=== PATIENT | male | born 1945 | race Caucasian/White ===

== ENCOUNTER 2022-12-14 10:55 | Inpatient (IN) | payer OTHER ==
[~2022-12-14] VITALS: Ht 175.3 cm; Wt 83.5 kg
[2022-12-14] MEDS ORDERED: JANUMET 50-1,01 EACH (12:10)
--- NOTE | 2022-12-14 12:11 | NUR ---
REFIERE HISTORIAL DE SANGRADO RECTAL, DADO DE DONALD 12/08 DRMARIAMA LO ENVIA A ER PARA SEGUIMIENTO.
[2022-12-15] MEDS ORDERED: FERROUS SULFAT325 MG (15:07)
[2022-12-15] MEDS ORDERED: FOLIC ACID1 MG (15:07)
[2022-12-15] MEDS ORDERED: CLOPIDOGREL BIS75 MG (15:07)
[2022-12-15] MEDS ORDERED: VITAMIN D3250 MCG (15:07)
[2022-12-15] MEDS ORDERED: LISINOPRIL20 MG (15:07)
[2022-12-15] MEDS ORDERED: AMLODIPINE-BEN1 EAC3 (15:07)
[2022-12-15] MEDS ORDERED: TAMSULOSIN HCL0.4 MG (15:07)
[2022-12-15] MEDS ORDERED: ATORVASTATIN CA20 MG (15:07)
[2022-12-15] MEDS ORDERED: PANTOPRAZOLE SO40 MG (15:07)
[2022-12-15] MEDS ORDERED: REFRESH RELIEVA10 ML (15:07)
[2022-12-15] MEDS ORDERED: FENOFIBRATE48 MG (15:08)
[2022-12-15] MEDS ORDERED: BENAZEPRIL HCL10 MG (15:08)
[2022-12-15] MEDS ORDERED: METOPROLOL SUCC25 MG (15:08)
[2022-12-15] MEDS ORDERED: AMLODIPINE BESYL5 MG (15:08)
[2022-12-19] MEDS ORDERED: CELEBREX200MG PO (14:21)
[2022-12-19] MEDS ORDERED: PERCOCET 5-3251 EACH PO (14:21)
== END 2022-12-19 14:20 | disposition home or self-care (01) | DRG 348 ==
LOC: ER 10:55 → SURH 13:26 → SEC-K 13:26 → MEDJ 15:31 → SURH 15:32
PROVIDERS: ADMIT Surgery; ATTEND Surgery
PROC: B24BYZZ Ultrasonography of Heart with Aorta using Other Contrast (ICD-10-PCS; 2022-12-15)
PROC: 06BY0ZC Excision of Hemorrhoidal Plexus, Open Approach (ICD-10-PCS; principal; 2022-12-17 12:00)
DX: K64.2 Third degree hemorrhoids (principal); D61.818 Other pancytopenia; K62.5 Hemorrhage of anus and rectum; D50.0 Iron deficiency anemia secondary to blood loss (chronic); D46.Z Other myelodysplastic syndromes; K64.8 Other hemorrhoids; E53.8 Deficiency of other specified B group vitamins; I10 Essential (primary) hypertension; E11.9 Type 2 diabetes mellitus without complications; E78.5 Hyperlipidemia, unspecified; Z79.84 Long term (current) use of oral hypoglycemic drugs

== ENCOUNTER 2022-12-24 14:22 | Emergency (ER) | payer OTHER ==
[~2022-12-24] VITALS: Ht 175.3 cm; Wt 83.9 kg
[~2022-12-24 14:22] MED LIST: AMLODIPINE BESYL5 MG; AMLODIPINE-BEN1 EAC3; ATORVASTATIN CA20 MG; BENAZEPRIL HCL10 MG; CELEBREX200MG PO; CLOPIDOGREL BIS75 MG; FENOFIBRATE48 MG; FERROUS SULFAT325 MG; FOLIC ACID1 MG; JANUMET 50-1,01 EACH; LISINOPRIL20 MG; METOPROLOL SUCC25 MG; PANTOPRAZOLE SO40 MG; PERCOCET 5-3251 EACH PO; REFRESH RELIEVA10 ML; TAMSULOSIN HCL0.4 MG; VITAMIN D3250 MCG
== END 2022-12-24 18:13 | disposition home or self-care (01) ==
LOC: ER 14:22
DX: R07.81 Pleurodynia (principal); E11.65 Type 2 diabetes mellitus with hyperglycemia; Z79.84 Long term (current) use of oral hypoglycemic drugs; K59.00 Constipation, unspecified; Z88.0 Allergy status to penicillin; I10 Essential (primary) hypertension

== ENCOUNTER 2022-12-31 12:06 | Emergency (ER) | payer OTHER ==
[~2022-12-31] VITALS: Ht 175.3 cm; Wt 83.9 kg
== END 2022-12-31 17:50 | disposition home or self-care (01) ==
LOC: ER 12:06
DX: K62.89 Other specified diseases of anus and rectum (principal); Z88.6 Allergy status to analgesic agent; Z98.890 Other specified postprocedural states; E11.9 Type 2 diabetes mellitus without complications; Z79.84 Long term (current) use of oral hypoglycemic drugs; N20.0 Calculus of kidney

== ENCOUNTER 2023-01-06 07:27 | Inpatient (IN) | payer OTHER ==
[~2023-01-06] VITALS: Ht 152.4 cm; Wt 83.9 kg
--- NOTE | 2023-01-06 07:48 | NUR ---
SE RECIBE PTE ALERTA ORIENTADO X3 EN AMBULANCIA EN COMPANIA DE PARAMEDICOS Y FAMILIAR EL CUAL REFIERE PTE PRESENTO 2 EPISODIOS DE SANGR[facility] RECTAL ABUNDANTE HOY EN LA MADRUGADA.SE JANAK S/V Y SE UBICA EN AREA DE OBSERVACION.
--- NOTE | 2023-01-06 08:51 | NUR ---
SE ASISTE AL DR. CRANE EN REALIZAR EXAMEN RECTAL. SE JANAK MUESTRAS DE LABORATORIO Y SE ENVIAN
== END 2023-01-15 19:06 | disposition home or self-care (01) | DRG 377 ==
LOC: ER 07:27 → SURH 13:22 → ICU 01-07 21:45 → MEDJ 01-09 19:33
PROVIDERS: ADMIT Surgery; ATTEND Surgery
PROC: 30233N1 Transfusion of Nonautologous Red Blood Cells into Peripheral Vein, Percutaneous Approach (ICD-10-PCS; 2023-01-07)
PROC: 02HV33Z Insertion of Infusion Device into Superior Vena Cava, Percutaneous Approach (ICD-10-PCS; 2023-01-07)
PROC: 4A12X4Z Monitoring of Cardiac Electrical Activity, External Approach (ICD-10-PCS; 2023-01-07)
PROC: 0DJD8ZZ Inspection of Lower Intestinal Tract, Via Natural or Artificial Opening Endoscopic (ICD-10-PCS; principal; 2023-01-15)
DX: K62.5 Hemorrhage of anus and rectum (principal); R57.8 Other shock; R65.21 Severe sepsis with septic shock; E87.1 Hypo-osmolality and hyponatremia; N17.9 Acute kidney failure, unspecified; D50.0 Iron deficiency anemia secondary to blood loss (chronic); K64.8 Other hemorrhoids; Z79.4 Long term (current) use of insulin; D46.9 Myelodysplastic syndrome, unspecified; E11.65 Type 2 diabetes mellitus with hyperglycemia; E11.22 Type 2 diabetes mellitus with diabetic chronic kidney disease; I12.9 Hypertensive chronic kidney disease with stage 1 through stage 4 chronic kidney disease, or unspecified chronic kidney disease; N18.9 Chronic kidney disease, unspecified; Z20.822 Contact with and (suspected) exposure to COVID-19